=== PATIENT | male | born 1965 | race Caucasian/White ===

== ENCOUNTER 2018-08-08 09:51 | Emergency (ER) | payer MEDICAID, OTHER ==
--- NOTE | 2018-08-08 10:33 | EDPHY ---
H & P Smoking Status: Never smoked Time Seen by Provider: 08/08/18 10:03 HPI/ROS: CLINICAL IMPRESSION: Venous insufficiency ASSESSMENT/PLAN: Very pleasant 53-year-old male presents to the emergency department with 4 days of atraumatic right lower leg swelling associated with discoloration. No open wounds, symmetric temperature to left leg, distal neurovascular exam intact. Patient had normal ultrasound at [facility] 4 days ago. Repeat ultrasound today confirms no DVT. X-rays of the foot and ankle show no evidence of acute fracture or bony lesions. Patient was seen examined by Dr. Iqbal. CT abdomen with runoff was performed showing significant large varicose veins in the right leg with edema, no evidence of arterial clot. Suspect venous insufficiency. Patient is established with Dr. Bertin Rogers and had prior venous stripping with him. Labs today are without abnormality. No chest pain or shortness of breath and no clinical signs of CHF. I encouraged him to purchase compression stockings, elevate the legs as much as possible, follow up with General surgery or interventional radiology, and PCP. Return to ER for worsening symptoms as outlined in person or and discharge papers. DIFFERENTIAL DX: Differential includes but not limited to DVT, cellulitis, venous insufficiency, arterial thrombus, fracture, fluid overload from CHF ED PROCEDURES: See lab and/or imaging results below ED COURSE: 11:14 a.m.: Radiology has read patient's ultrasound study is negative 1143 a.m.: Radiology results discussed with the patient. Case reviewed with Dr. Iqbal who also seen examined the patient. CT scan results discussed with Dr. Mckeon. Patient appears to have findings consistent with venous insufficiency. No arterial clot identified. Large varicose veins noted throughout the entire right leg. CHIEF COMPLAINT: Right leg swelling and discoloration HPI: 53-year-old male with a history of hypertension presents to the emergency department with 4 days of atraumatic right lower leg swelling and discoloration. Patient states symptoms began 4 days ago with a discomfort on the anterior right ankle. He was seen at [facility] and reportedly had a normal ultrasound. It was presumed he may have mild cellulitis and was started on Keflex which he has been taking compliantly. Over the course of the last 4 days he has had increased lower leg swelling with discoloration on the medial aspect of the lower leg and the dorsum of the foot around the toes. He does have reproducible pain to palpation on the foot near the toes as well as on the medial ankle. He denies any twisting trauma or injury. No prior orthopedic injury or surgery. He has had bilateral vein stripping surgery secondary to varicose veins. He does have a history of DVT to the legs 10 years ago from unknown cause. He is not currently anticoagulated. He complains of no shortness of breath, chest pain, left leg swelling, upper extremity swelling, orthopnea. No reported fevers, chills, myalgias, palpitations, nausea or vomiting. No open wounds. No history of cellulitis or MRSA. He lives in [place]. He was unable to get into his primary care provider, Dr. Nunez, today and was advised to come to the ED. PAST MEDICAL HISTORY: See triage summary and nurse notes for addition applicable history Hypertension Pertinent Past Surgical History: None reported Family History: None reported Social History: Nonsmoker, compliant with medications, lives alone in [place] REVIEW OF SYSTEMS: A full 10 point review of systems was negative except for those mentioned in HPI. PHYSICAL EXAM: General Appearance: Alert, oriented, appropriate, cooperative, NAD, well hydrated, non-toxic appearing, VSS, no hypoxia. Neck: Supple, nontender, no lymphadenopathy, no midline pain, FROM, no meningismus. Respiratory: There are no retractions, lungs are clear to auscultation. Cardiac: Regular rate and rhythm, no murmurs or gallops. Gastrointestinal: Abdomen is soft, nontender, bowel sounds normal, no masses/ hernia, no rigidity, guarding or focal peritoneal findings. Skin: Warm, dry, no rashes, no nodules on palpation. Musculoskeletal: Obvious swelling to the right lower leg compared to left. Pedal pulses and posterior tibialis pulses intact bilaterally and symmetric. Cap refill 2 sec bilaterally. Mild erythema and warmth appreciated to the right lower leg. Contusion noted to the medial aspect of the right lower leg and on the dorsum of the distal right foot along the 2nd through 4th metatarsals with reproducible pain to palpation in this area. Patient also has reproducible pain to the medial aspect of the ankle. Normal range of motion of the ankle, knee and foot. No clinical signs to suggest septic arthritis or septic joint. Mild discomfort to palpation of the right calf. Superficial scabbed abrasions to the anterior right lower leg. Full range of motion of the knee and hip. No obvious pitting edema. No swelling or discoloration of the left leg. No pallor or paresthesias reported. MEDICAL DECISION MAKING: Patient was seen independently. Secondary supervising physician at time of evaluation was: Dr. Iqbal. Diagnosis: Venous insufficiency of the right lower leg. New, requires workup Summary: See Assessment and Plan for summary of ED visit Clinical lab tests: ordered / reviewed. Independent visualization of images, tracing, or specimens: Yes / No. Decision to obtain medical records or history from someone other than the patient: No Review / Summarize previous medical records: Reviewed prior [facility] records Discussed patient with another provider: Dr. Iqbal, Dr. Mckeon Patient Progress: Stable. (Jcarlos Fuentes) Constitutional: Initial Vital Signs Temperature (C) 36.8 C 08/08/18 09:57 Heart Rate 70 08/08/18 09:57 Respiratory Rate 16 08/08/18 09:57 Blood Pressure 166/115 H 08/08/18 09:57 O2 Sat (%) 95 08/08/18 09:57 O2 Delivery Mode Room Air Allergies/Adverse Reactions: fentanyl Allergy (Verified 08/08/18 09:56) Penicillins Allergy (Verified 08/08/18 09:56) Home Medications: Medication Instructions Recorded Atenolol 04/15/16 Cephalexin 08/08/18 Meloxicam 08/08/18 amLODIPine BESYLATE 08/08/18 MDM/Departure - MDM Imaging Results: Imaging Impressions Ankle X-Ray 08/08/18 10:25 Impression: 1. No acute osseous abnormality. 2. 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 3. 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 4. Large plantar calcaneal spur and small Achilles enthesophyte. 5. Possible remote avulsion injuries off the lateral malleolus and adjacent to the cuboid. Foot X-Ray 08/08/18 10:25 Impression: 1. No acute osseous abnormality. 2. 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 3. 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 4. Large plantar calcaneal spur and small Achilles enthesophyte. 5. Possible remote avulsion injuries off the lateral malleolus and adjacent to the cuboid. Extremity Venous Study 08/08/18 10:26 Impression: Negative for right lower extremity DVT. Findings and recommendations discussed with Jcarlos Fuentes at 1113 hour, . Medications Given: Discontinued Medications Hydrocodone Bitart/Acetaminophen (Apison 5/325) 2 tab PO EDNOW ONE Stop: 08/08/18 12:02 Last Admin: 08/08/18 12:05 Dose: 2 tab Sodium Chloride (Ns) 1,000 mls @ 0 mls/hr IV EDNOW ONE; Wide Open PRN Reason: Protocol Stop: 08/08/18 11:53 Last Admin: 08/08/18 12:03 Dose: 1,000 mls ED Course/Re-evaluation: Independent Physician Evaluation: I evaluated the patient independently. The patient presents to the ED with unilateral leg pain and swelling. Physicial exam shows bruising, tenderness and ecchymosis. U/S negative for DVT CTA of extremilty negative for vascular injury or occlusion. Patient will be discharged home. Currently on Abx for possible mild cellulitis. (Peter Iqbal) - Depart Disposition: Home, Routine, Self-Care Clinical Impression: Venous insufficiency of right lower extremity Condition: Fair Instructions: Venous Insufficiency (DC) Additional Instructions: DISCHARGE INSTRUCTIONS FROM YOUR DOCTOR Thank you for visiting our emergency department today. Please keep in mind that discharge from the emergency department does not mean that there is nothing wrong - it simply means that we have not identified an emergency condition that requires further evaluation or treatment in the hospital. You should always plan to follow up with primary care for re-evaluation of your condition in the next 2-3 days. If you have been referred to a specialist, please call as soon as possible (today or tomorrow) to schedule your follow up appointment at the appropriate time. Your repeat ultrasound x-rays of the foot and ankle were all negative. CT scan of the leg shows venous insufficiency and very large varicose veins which is likely contributing to the swelling in your leg. We strongly recommend you see your surgeon for this. Another option is to see an interventional radiology. Please consider purchasing compression stockings for the leg, elevate the legs as much as possible, follow up with her primary care provider. Labs were reassuring. Return to the emergency department for worsening swelling, temperature change the leg, loss of sensation or feeling in the leg, open wounds to the leg, chest pain or shortness of breath, or any other concerns. People present with illnesses and injuries in different ways, and it is always possible that we have missed something. You may always return for re-evaluation if symptoms worsen or if they are not improving or if you develop new/different symptoms. Again, thank you for choosing our emergency department. We hope that you feel better. Referrals: Denae Garrett PAC [Primary Care Provider] - As per Instructions Latrell Rogers MD [Medical Doctor] - As per Instructions
[2018-08-08] MEDS ORDERED: NS 1,000 ML IV ONE (11:52)
[2018-08-08] MEDS ORDERED: HYDROCODONE/APAP 5/325 TAB PO ONE (12:01)
[2018-08-08 12:12] LABS: PLATELET COUNT 249 10^3/uL (150-400)
[2018-08-08] MEDS ORDERED: IOPAMIDOL (ISOVUE-370) 150 ML BTL IV ONE (12:46)
[2018-08-08 15:30] VITALS: BP 140/103
== END 2018-08-08 15:29 | disposition home or self-care (01) ==
DX: I83.811 Varicose veins of right lower extremity with pain (principal); E86.9 Volume depletion, unspecified; Z88.0 Allergy status to penicillin
CPT/HCPCS: 73610; 73630; 75635; 93971; 96360; 99285; Q9967

== ENCOUNTER 2019-01-01 17:51 | Emergency (ER) | payer MEDICAID, OTHER ==
--- NOTE | 2019-01-01 18:21 | EDPHY ---
H & P Stated Complaint: post-op endovenous ablation bleeding, [facility] Time Seen by Provider: 01/01/19 18:20 HPI/ROS: CHIEF COMPLAINT: Postoperative bleeding HISTORY OF PRESENT ILLNESS: The patient underwent vein stripping at the surgery center today. He presents to the ED today after he noticed he was bleeding at his banded sites. The patient denies any lightheadedness or difficulty breathing. He denies any acute neurologic complaints. The patient was brought in by ambulance. REVIEW OF SYSTEMS: A comprehensive 10 point review of systems is otherwise negative aside from elements mentioned in the history of present illness. Source: Patient Exam Limitations: No limitations - Personal History Current Tetanus Diphtheria and Acellular Pertussis (TDAP): Yes - Medical/Surgical History Hx Asthma: Yes Hx Chronic Respiratory Disease: No Hx Diabetes: No Hx Cardiac Disease: No Hx Renal Disease: No Hx Cirrhosis: No Hx Alcoholism: No Hx HIV/AIDS: No Hx Splenectomy or Spleen Trauma: No Other PMH: HTN, R leg vein stripping, R leg endovenous ablation - Social History Smoking Status: Never smoked - Physical Exam Exam: General Appearance: Obese male, no acute distress Eyes: Pupils equal and round no pallor or injection ENT, Mouth: Mucous membranes moist Respiratory: There are no retractions, lungs are clear to auscultation Cardiovascular: Regular rate and rhythm Gastrointestinal: Abdomen is soft and nontender, no masses, bowel sounds normal Neurological: 5/5 strength noted all 4 extremities Skin: Dressings taken down and no bleeding appreciated. Patient did have a mild amount of blood noted on the dressings. Musculoskeletal: Neck is supple nontender Extremities: symmetrical, full range of motion Constitutional: Initial Vital Signs Temperature (C) 37.1 C 01/01/19 17:58 Heart Rate 68 01/01/19 17:58 Respiratory Rate 18 01/01/19 17:58 Blood Pressure 132/92 H 01/01/19 17:58 O2 Sat (%) 92 01/01/19 17:58 O2 Delivery Mode Room Air Allergies/Adverse Reactions: fentanyl Allergy (Verified 01/01/19 18:00) Penicillins Allergy (Verified 01/01/19 18:00) Home Medications: Medication Instructions Recorded Atenolol 04/15/16 Cephalexin 08/08/18 Meloxicam 08/08/18 amLODIPine BESYLATE 08/08/18 Medical Decision Making ED Course/Re-evaluation: Patient presents to the ED after an episode of mild postoperative bleeding. The patient is hemodynamically stable. He is having no ongoing bleeding in the emergency department. His leg was redressed. He was observed in the emergency department without recurrent bleeding. He will be discharged with instructions to return to the ED for any recurrent bleeding, lightheadedness or other concerns. Departure - Departure Disposition: Home, Routine, Self-Care Clinical Impression: Postoperative bleeding right leg-resolve Condition: Good Instructions: Vein Stripping (DC) Additional Instructions: 1. Return to the ED for recurrent bleeding, uncontrolled pain or other concerns. 2. Please follow up as scheduled with your physicians. Referrals: Denae Garrett, PAC [Primary Care Provider] - As per Instructions
--- NOTE | 2019-01-01 19:38 | CPEKG ---
Test Reason : OPEN Blood Pressure : / mmHG Vent. Rate : 118 BPM Atrial Rate : 117 BPM P-R Int : 176 ms QRS Dur : 111 ms QT Int : 327 ms P-R-T Axes : 017 -47 104 degrees QTc Int : 459 ms Sinus tachycardia Multiple ventricular premature complexes LVH with IVCD, LAD and secondary repol abnrm Confirmed by Peter Iqbal ([id number]) on 01/01/2019 7:37:22 PM Referred By: Peter Iqbal Confirmed By:Petre Iqbal
[2019-01-01 19:42] VITALS: BP 113/77
== END 2019-01-01 19:42 | disposition home or self-care (01) ==
LOC: EDUNIT#
DX: L76.22 Postprocedural hemorrhage of skin and subcutaneous tissue following other procedure (principal)